=== PATIENT | female | born 1970 | race Caucasian/White ===

== ENCOUNTER 2024-05-16 14:27 | Outpatient (CLI) | payer OTHER, SELFPAY ==
--- NOTE | ~2024-05-16 | CT_ITS ---
EXAMINATION:CT lung screening DATE: 05/16/2024 14:40 INDICATION: Personal history of nicotine dependence. Tobacco use. Current smoker with 25 pack year hi story. TECHNIQUE: Computed tomography (CT) of the chest was performed without intravenous contrast. Automate d exposure control and iterative reconstruction technique were employed. The dose-length product (DLP ) was 403.03 mGy-cm. COMPARISON: CT abdomen and pelvis 10/08/2016 FINDINGS: There is a 2 mm nodule in right upper lobe. There is no pneumonia or pleural effusion. The heart size is normal. No pericardial effusion. There are changes of anterior fusion procedure in cerv ical spine. There is mild thoracic spondylosis. IMPRESSION: 1. Lung-RADS category 2: Benign appearance or behavior. Continue annual screening with noncontrast lo w-dose chest CT in 12 months. Reviewed, dictated and finalized at location A. IMPRESSION: 1. Lung-RADS category 2: Benign appearance or behavior. Continue annual screeni ng with noncontrast low-dose chest CT in 12 months.
== END 2024-05-16 14:28 ==
PROVIDERS: PCP Family Medicine; Visit Provider Physician Assistant Medical
DX: Z12.2 Encounter for screening for malignant neoplasm of respiratory organs (principal); F17.210 Nicotine dependence, cigarettes, uncomplicated
CPT/HCPCS: 71271

== ENCOUNTER 2024-08-27 01:34 | Day surgery (SDC) | payer OTHER, SELFPAY ==
[2024-08-20 11:36] VITALS: BMI 55.0
[2024-08-27 12:37] VITALS: BP 108/51; PULSE 118; RESP 20; TEMP 35.8; O2SAT 100; BMI 60.2
[2024-08-27] MEDS: LACTATED RINGERS 1,000 ML 150 ML IV CONT (12:47)
--- NOTE | 2024-08-27 13:09 | WPDANESEPPF ---
Anes - Initial Pre Proc Eval Procedure: Operation Date: 08/27/24 13:30 Proposed Procedures p Colonoscopy - Curly Luna MD Date/Time: 08/27/24 13:09 Surgeon: Curly Luna MD Pre Op Diagnosis: screening colon, screening rectum,family hx cancer Patient Data Age: 54 Gender: F Height: 1.6 m Weight: 154.2 kg Last Vital Signs Temp 35.8 C L 08/27/24 12:37 Pulse 118 H 08/27/24 12:37 Resp 20 08/27/24 12:37 BP 108/51 L 08/27/24 12:37 Pulse Ox 100 08/27/24 12:37 O2 Del Method Room Air 08/27/24 12:37 Allergies Allergy/AdvReac Type Severity Reaction Status Date / Time No Known Allergies Allergy Mild Verified 08/27/24 12:35 Home Medications Medication Instructions Recorded Confirmed Type escitalopram oxalate 10 mg tablet 5 mg PO DAILY #90 tabs 04/18/24 08/27/24 Rx bupropion HCl 150 mg 24 hr tablet, See Rx Instructions .Route 04/23/24 08/27/24 Rx extended release .COMPLEX #30 tabs varenicline 1 mg tablet 1 mg PO BID #56 tabs 07/02/24 08/27/24 Rx cyclobenzaprine 10 mg tablet See Rx Instructions .Route 07/12/24 08/27/24 Rx .COMPLEX #90 tabs gabapentin 300 mg capsule See Rx Instructions .Route 08/20/24 08/27/24 History .COMPLEX PRN Pain Patient hx anesthesia problems: none Family hx anesthesia problems: none Results Review: All pre-operative results and documents have been reviewed as part of the pre-operative evaluation. [facility] Past Medical History Medical History Anxiety Cervical myelopathy Depression Fibromyalgia Surgical History Surgical History H/O cervical spine surgery Family History Family History Father Family history of gout Family history of glaucoma Family history of arthritis Mother Family history of glaucoma Family history of chronic obstructive pulmonary disease Sibling Carcinoma of colon Other Diabetes mellitus Family history of blood dyscrasia Family history of kidney disease Social History Social History Smoking packs per day: 1 Smoking cigarettes per day: 20.0 Years smoked: 20 Smoking pack-years: 20.00 Smoking status: Former smoker Tobacco type: cigarettes Smoking end date: 10/17/19 Alcohol intake: never Substance use: never Substance use type: does not use Living arrangements: with family Occupation/Education: occupation Gender identity (if verbalized by the patient): Female Spiritual care concerns: No Anes - Eval Final PreProcedure Day of Procedure 08/27/24 13:09 Patient weight: super morbidly obese Heart: regular rate and rhythm Lungs: clear to auscultation Airway: Mallampati scale class 1 Neurological: alert and oriented Last oral intake: >/= 8 hours ASA classification: III Emergent: no Anesthetic plan: proceed Anesthesia type and monitoring: general GIVS Results Review: All pre-operative results and documents have been reviewed as part of the pre-operative evaluation. Informed Consent: The patient's anesthetic plan and its attendant risks and benefits were discussed with the patient/family/POA. Questions were solicited and answers provided to the satisfaction of the patient/family/POA.
--- NOTE | 2024-08-27 13:32 | P.HP_ITS ---
H&P: HPI History of Present Illness Date/Time: 08/27/24 13:32 Chief Complaint: Family history of colorectal cancer Narrative: This patient has family history of colorectal cancer. HER brother of CRC when he was 46 years old. She had a colonoscopy 5 years ago, normal. Review of Systems Review of Systems: All systems reviewed & are unremarkable except as noted in HPI and below PMFSH Past Medical History Medical History Anxiety Cervical myelopathy Depression Fibromyalgia Surgical History Surgical History H/O cervical spine surgery Family History Family History Father Family history of gout Family history of glaucoma Family history of arthritis Mother Family history of glaucoma Family history of chronic obstructive pulmonary disease Sibling Carcinoma of colon Other Diabetes mellitus Family history of blood dyscrasia Family history of kidney disease Social History Social History Smoking packs per day: 1 Smoking cigarettes per day: 20.0 Years smoked: 20 Smoking pack-years: 20.00 Smoking status: Former smoker Tobacco type: cigarettes Smoking end date: 10/17/19 Alcohol intake: never Substance use: never Substance use type: does not use Living arrangements: with family Occupation/Education: occupation Gender identity (if verbalized by the patient): Female Spiritual care concerns: No Meds Home Medications and Allergies Home Medications Medication Instructions Recorded Confirmed Type escitalopram oxalate 10 mg tablet 5 mg PO DAILY #90 tabs 04/18/24 08/27/24 Rx bupropion HCl 150 mg 24 hr tablet, See Rx Instructions .Route 04/23/24 08/27/24 Rx extended release .COMPLEX #30 tabs varenicline 1 mg tablet 1 mg PO BID #56 tabs 07/02/24 08/27/24 Rx cyclobenzaprine 10 mg tablet See Rx Instructions .Route 07/12/24 08/27/24 Rx .COMPLEX #90 tabs gabapentin 300 mg capsule See Rx Instructions .Route 08/20/24 08/27/24 History .COMPLEX PRN Pain Allergies Allergy/AdvReac Type Severity Reaction Status Date / Time No Known Allergies Allergy Mild Verified 08/27/24 12:35 Vital Signs Vital Signs - 24 hr 08/27/24 12:37 Temperature 96.4 F L Pulse Rate 118 H Respiratory Rate 20 Blood Pressure 108/51 L Pulse Oximetry 100 Oxygen Delivery Room Air Exam Const: General: cooperative and healthy appearing Resp: Effort & Inspection: normal respiratory effort and able to speak in complete sentences Auscultation: clear to auscultation bilaterally Cardio: Rate: regular rate Rhythm: regular rhythm GI: Inspection: normal to inspection GI Palp: No No hepatosplenomegaly p resent Auscultation: normal bowel sounds Rectal Exam: deferred Skin: General skin exam: normal color Psych: Appearance: grossly normal Mental Status: mental status grossly normal Assessment and Plan Assessment and plan (1) Family history of colon cancer: Code(s): Z80.0 - Family history of malignant neoplasm of digestive organs Status: Acute Assessment and Plan: The patient is deemed a good candidate for the procedure. Consent signed. Will proceed.
[2024-08-27 13:57] VITALS: BP 112/70; PULSE 89; RESP 18; O2SAT 97
[2024-08-27 14:07] VITALS: BP 124/70; PULSE 85; RESP 18; O2SAT 98
[2024-08-27 14:14] VITALS: BP 133/73; PULSE 83; RESP 18; O2SAT 99
== END 2024-08-27 14:30 | disposition home or self-care (01) ==
PROVIDERS: PCP Family Medicine; Referring Provider Physician Assistant Medical; Visit Provider Internal Medicine Gastroenterology
PROC: 0DJD8ZZ Inspection of Lower Intestinal Tract, Via Natural or Artificial Opening Endoscopic (ICD-10-PCS; CPT 45378; principal; 2024-08-27 13:30)
DX: Z12.11 Encounter for screening for malignant neoplasm of colon (principal); K64.0 First degree hemorrhoids; Z80.0 Family history of malignant neoplasm of digestive organs; F41.9 Anxiety disorder, unspecified; F32.A Depression, unspecified; M79.7 Fibromyalgia; Z87.891 Personal history of nicotine dependence; E66.01 Morbid (severe) obesity due to excess calories; Z68.44 Body mass index [BMI] 60.0-69.9, adult
CPT/HCPCS: 45378; J2003; J2704; J7120

== ENCOUNTER 2024-10-08 15:28 | Outpatient (CLI) | payer OTHER, SELFPAY ==
--- NOTE | ~2024-10-08 | MM_ITS ---
EXAMINATION: MM screening lit BI w raquel HISTORY: Baseline TECHNIQUE: Craniocaudal and mediolateral oblique 3-D tomosynthesis images were obtained and synthetic 2-D images were generated. CAD analysis was submitted and interpreted. COMPARISON: None. BREAST PARENCHYMAL COMPOSITION: Not Dense. The breasts are almost entirely fatty. FINDINGS: Well-circumscribed asymmetry within the upper outer quadrant of the right breast approximately 9 to 1 0 cm from the nipple for which spot compression followed by a focused ultrasound is recommended. Focused ultrasound of the periareolar position of the right breast is also recommended to exclude asy mmetric ductal dilatation and debris (intraductal papilloma). Otherwise unremarkable parenchymal pattern without suspicious microcalcifications or architectural di stortion. IMPRESSION: Well-circumscribed asymmetry within the upper outer quadrant of the right breast approximately 9 to 1 0 cm from the nipple for which spot compression followed by a focused ultrasound is recommended. Focused ultrasound of the retroareolar position of the right breast is also recommended for further e valuation of asymmetric ductal dilatation to exclude intraductal papilloma. BI-RADS Category 0: Incomplete: Needs additional imaging evaluation. Reviewed, dictated and finalized at location A. GER MAIL IMPRESSION: Well-circumscribed asymmetry within the upper outer quadrant of the right breas t approximately 9 to 10 cm from the nipple for which spot compression followed by a focused ultrasound is recommended. Focused ultrasound of the retroareolar position of the right breast is also rec ommended for further evaluation of asymmetric ductal dilatation to exclude intr aductal papilloma. BI-RADS Category 0: Incomplete: Needs additional imaging evaluation.
== END 2024-10-08 15:29 | disposition home or self-care (01) ==
LOC: MICIMG 15:28
PROVIDERS: PCP Family Medicine; Visit Provider Physician Assistant Medical
DX: Z12.31 Encounter for screening mammogram for malignant neoplasm of breast (principal); R92.8 Other abnormal and inconclusive findings on diagnostic imaging of breast
CPT/HCPCS: 77063; 77067

== ENCOUNTER 2025-02-07 08:01 | Outpatient (CLI) | payer OTHER, SELFPAY ==
--- NOTE | ~2025-02-07 | MMUS_ITS ---
EXAMINATION: MM diagnostic lit RT w raquel, US breast RT limited HISTORY: Follow-up right breast asymmetry TECHNIQUE: Additional 3-D tomosynthesis images of the right breast were performed and synthetic 2-D i mages were generated. CAD analysis was submitted and interpreted. High resolution Limited right breas t ultrasound was performed. COMPARISON: No prior studies for comparison. BREAST PARENCHYMAL COMPOSITION: Not dense: There are scattered areas of fibroglandular density. FINDINGS: MAMMOGRAPHIC FINDINGS: There are no suspicious masses, calcifications or architectural distortion in the right breast to sug gest malignancy. ULTRASOUND: Limited right breast ultrasound: Normal heterogeneous echotexture without focal solid or cystic mass. IMPRESSION: 1. No evidence for malignancy in the right breast. 2. Routine yearly screening mammogram and regular clinical breast examination are recommended. BI-RADS Category 1: Negative Reviewed, dictated and finalized at location A. IMPRESSION: 1. No evidence for malignancy in the right breast. 2. Routine yearly screening mammogram and regular clinical breast examination a re recommended. BI-RADS Category 1: Negative
== END 2025-02-07 08:02 | disposition home or self-care (01) ==
LOC: MICIMG 08:01
PROVIDERS: PCP Family Medicine; Visit Provider Physician Assistant Medical
DX: R92.8 Other abnormal and inconclusive findings on diagnostic imaging of breast (principal)
CPT/HCPCS: 76642; 77061; 77065; G0279